=== PATIENT | female | born 1945 | race Caucasian/White ===

== ENCOUNTER 2020-08-06 08:47 | Outpatient (REF) | payer MEDICARE, SELFPAY ==
[2020-08-06 10:02] LABS: MANUAL DIFF FLAG NO
[2020-08-06 10:11] LABS: Basophils Absolute Auto 0.1 X10*3/uL (0.0-0.2); Basophils Percent Auto 0.5 % (0-2); Eosinophils Absolute Auto 0.6 X10*3/uL (0.0-0.4); Eosinophils Percent Auto 6.6 % (0-4); Hematocrit 35.9 % (37-47); Hemoglobin 11.4 g/dl (12.0-16.0); Imm Gran Abs Auto 0.03 X10*3/uL (0.00-0.03); Imm Gran Pct Auto 0.3 % (0.0-0.4); Lymphocytes Percent Auto 20.4 % (20-40); Mean Corpuscular HGB Conc 31.8 g/dl (31.0-35.0); Mean Corpuscular Hemoglobin 27.5 pg (27.0-33.0); Mean Corpuscular Volume 86.7 fL (80-98); Mean Platelet Volume 12.4 fL (9.4-12.3); Monocytes Absolute Auto 0.6 X10*3/uL (0.1-1.2); Monocytes Percent Auto 6.1 % (2-11); Neutrophils Absolute Auto 6.4 X10*3/uL (2.0-8.3); Neutrophils Percent Auto 66.1 % (45-73); Platelet Count 249 X10*3/uL (160-400); Red Blood Count 4.14 X10*6/uL (4.20-5.50); Red Cell Distribution Width 13.4 % (11.0-16.0); White Blood Count 9.7 X10*3/uL (4.8-10.8)
[2020-08-06 10:19] LABS: Glucose Urine UA 250 MG/DL (NEG); Leukocyte Esterase Urine NEG (NEG); Nitrite Urine NEG (NEG); Urine Blood TRACE (NEG); Urine Ketones NEG (NEG); Urine Protein 2+ MG/DL (NEG-TRACE)
[2020-08-06 10:22] LABS: Renal w Reflex-LAB USE ONLY Order Verified
[2020-08-06 10:23] LABS: Appearance Urine CLEAR; Color Urine YELLOW
[2020-08-06 10:36] LABS: Bacteria Urine TRACE /LPF; Hyaline Casts Urine 0-2 /LPF; Mucus Urine TRACE /LPF; RBC Urine 0-2 /HPF (0); Squamous Epithelial Cell Urine 1+ /LPF
[2020-08-06 10:53] LABS: Albumin Level 4.2 g/dL (3.5-5.0); Anion Gap 16 (12-20); Blood Urea Nitrogen 65 mg/dL (9-16); Calcium 9.3 mg/dL (8.4-10.2); Carbon Dioxide 27 mmol/L (22-29); Chloride 104 mmol/L (96-108); Estimated Glomerular Filt Rate 16; Magnesium 2.3 mg/dL (1.6-2.6); Phosphorus 3.7 mg/dL (2.7-4.5); Potassium 4.8 mmol/l (3.3-5.1); Sodium 142 mmol/L (135-145)
[2020-08-06 10:57] LABS: Creatinine Urine 94.71 mg/dL
[2020-08-06 11:02] LABS: Total Protein Urine Random 259 mg/dL (<12)
[2020-08-06 11:33] LABS: Renal w Reflex Lab Use Only Order verified
[2020-08-06 11:38] LABS: Creatinine Urine 93.04 mg/dL; Protein/Creatinine Ratio, Ur 2.81 (<0.2); Total Protein Urine Random 261 mg/dL (<12)
[2020-08-07 17:21] LABS: Calcium (PTHI) 9.4 mg/dL (8.6-10.4); PTHI 95 pg/mL (14-64)
== END 2020-08-06 08:48 | disposition home or self-care (01) ==
LOC: HO.10HDL 08:47
PROVIDERS: Visit Provider Internal Medicine Nephrology
DX: E11.29 Type 2 diabetes mellitus with other diabetic kidney complication (principal); I12.9 Hypertensive chronic kidney disease with stage 1 through stage 4 chronic kidney disease, or unspecified chronic kidney disease; N18.30 Chronic kidney disease, stage 3 unspecified; R80.9 Proteinuria, unspecified
CPT/HCPCS: 36415; 80051; 81001; 82040; 82043; 82306; 82310; 82565; 83735; 83970; 84100; 84156; 84520; 85025

== ENCOUNTER 2020-11-13 09:41 | Outpatient (REF) | payer MEDICARE, SELFPAY ==
--- NOTE | ~2020-11-13 | XR_ITS ---
EXAMINATION: XR TIBIA AND FIBULA, RIGHT CLINICAL INFORMATION: Calcaneal abscess COMPARISON: None TECHNIQUE: AP and lateral views of the right tibia and fibula were obtained. FINDINGS: The bones and soft tissues are normal. No fracture. No osseous lesions. There are vascular calcification. XR/XR tibia fibula RT 2V IMPRESSION: Heavy vascular calcification, tibia and fibula otherwise are intact.
== END 2020-11-13 09:42 | disposition home or self-care (01) ==
LOC: HO.HMGCLDS 09:41
PROVIDERS: PCP Pediatrics; Visit Provider General Practice
DX: L02.415 Cutaneous abscess of right lower limb (principal)
CPT/HCPCS: 73590

== ENCOUNTER 2020-11-19 09:54 | Outpatient (REF) | payer MEDICARE, SELFPAY ==
[2020-11-19 13:43] LABS: MANUAL DIFF FLAG NO
[2020-11-19 13:48] LABS: Basophils Absolute Auto 0.1 X10*3/uL (0.0-0.2); Basophils Percent Auto 0.6 % (0-2); Eosinophils Absolute Auto 0.6 X10*3/uL (0.0-0.4); Eosinophils Percent Auto 6.5 % (0-4); Hematocrit 34.4 % (37-47); Hemoglobin 10.8 g/dl (12.0-16.0); Imm Gran Abs Auto 0.04 X10*3/uL (0.00-0.03); Imm Gran Pct Auto 0.4 % (0.0-0.4); Lymphocytes Absolute Auto 2.3 X10*3/uL (1.2-4.9); Lymphocytes Percent Auto 23.4 % (20-40); Mean Corpuscular HGB Conc 31.4 g/dl (31.0-35.0); Mean Corpuscular Hemoglobin 27.6 pg (27.0-33.0); Monocytes Absolute Auto 0.6 X10*3/uL (0.1-1.2); Monocytes Percent Auto 6.1 % (2-11); Neutrophils Absolute Auto 6.2 X10*3/uL (2.0-8.3); Platelet Count 259 X10*3/uL (160-400); Red Blood Count 3.91 X10*6/uL (4.20-5.50); Red Cell Distribution Width 13.7 % (11.0-16.0); White Blood Count 9.8 X10*3/uL (4.8-10.8)
[2020-11-19 14:08] LABS: Glucose Urine UA NEG (NEG); Leukocyte Esterase Urine NEG (NEG); Nitrite Urine NEG (NEG); Specific Gravity - Urine 1.025 (1.005-1.025); Urine Blood TRACE (NEG); Urine Ketones NEG (NEG); Urine Protein 2+ MG/DL (NEG-TRACE)
[2020-11-19 14:10] LABS: Color Urine YELLOW
[2020-11-19 14:11] LABS: Appearance Urine CLEAR
[2020-11-19 14:12] LABS: Renal w Reflex-LAB USE ONLY Order Verified
[2020-11-19 14:18] LABS: Estimated Average Glucose 177 mg/dL; Hemoglobin A1c % 7.8 %
[2020-11-19 14:24] LABS: Bacteria Urine 1+ /LPF; Squamous Epithelial Cell Urine 4+ /LPF
[2020-11-19 14:27] LABS: Alanine Aminotransferase 15 U/L (0-31); Albumin Level 4.2 g/dL (3.5-5.0); Alkaline Phosphatase 88 U/L (39-117); Anion Gap 18 (12-20); Aspartate Amino Transferase 15 U/L (5-31); Bilirubin Total 0.3 mg/dL (0.0-1.0); Calcium 9.5 mg/dL (8.4-10.2); Carbon Dioxide 21 mmol/L (22-29); Chloride 108 mmol/L (96-108); Glucose Fasting 104 mg/dL (60-99); Potassium 4.6 mmol/L (3.3-5.1); Sodium 142 mmol/L (135-145); Total Protein 7.2 g/dL (6.5-8.0); Uric Acid 8.4 mg/dL (2.4-5.7)
[2020-11-19 14:28] LABS: Magnesium 2.2 mg/dL (1.6-2.6); Phosphorus 5.5 mg/dL (2.7-4.5)
[2020-11-19 14:36] LABS: Renal w Reflex Lab Use Only Order verified; Vitamin D 25-OH Total 37.7 ng/mL (>30)
[2020-11-19 14:46] LABS: TSH reflex Free T4 1.01 uIU/mL (0.32-4.0)
[2020-11-19 14:51] LABS: Erythrocyte Sedimentation Rate 50 MM/HR (0-20)
[2020-11-19 14:58] LABS: Blood Urea Nitrogen 91 mg/dL (9-16); Estimated Glomerular Filt Rate 12
[2020-11-19 15:06] LABS: Creatinine Urine 67.55 mg/dL; Microalbum/Creatinine Ratio Ur 2894.1 ug/mg cr; Protein/Creatinine Ratio, Ur 4.26 (<0.2); Total Protein Urine Random 288 mg/dL (<12)
== END 2020-11-19 09:55 | disposition home or self-care (01) ==
LOC: HO.10HDL 09:54
PROVIDERS: Absent Provider Internal Medicine Nephrology; Visit Provider Pediatrics
DX: E11.29 Type 2 diabetes mellitus with other diabetic kidney complication (principal); E11.22 Type 2 diabetes mellitus with diabetic chronic kidney disease; I13.10 Hypertensive heart and chronic kidney disease without heart failure, with stage 1 through stage 4 chronic kidney disease, or unspecified chronic kidney disease; N18.30 Chronic kidney disease, stage 3 unspecified; R80.9 Proteinuria, unspecified; E11.65 Type 2 diabetes mellitus with hyperglycemia; E78.2 Mixed hyperlipidemia; L02.415 Cutaneous abscess of right lower limb; M1A.3720 Chronic gout due to renal impairment, left ankle and foot, without tophus (tophi)
CPT/HCPCS: 36415; 80053; 81001; 82043; 82306; 82550; 83036; 83735; 84100; 84156; 84443; 84550; 85025; 85652

== ENCOUNTER 2021-02-18 10:25 | Outpatient (REF) | payer MEDICARE, SELFPAY ==
[2021-02-18 11:38] LABS: MANUAL DIFF FLAG NO
[2021-02-18 11:54] LABS: Basophils Absolute Auto 0.1 X10*3/uL (0.0-0.2); Basophils Percent Auto 0.3 % (0-2); Eosinophils Absolute Auto 0.3 X10*3/uL (0.0-0.4); Eosinophils Percent Auto 1.7 % (0-4); Hematocrit 38.5 % (37-47); Hemoglobin 12.4 g/dl (12.0-16.0); Imm Gran Abs Auto 0.07 X10*3/uL (0.00-0.03); Imm Gran Pct Auto 0.5 % (0.0-0.4); Lymphocytes Absolute Auto 1.6 X10*3/uL (1.2-4.9); Lymphocytes Percent Auto 10.2 % (20-40); Mean Corpuscular HGB Conc 32.2 g/dl (31.0-35.0); Mean Corpuscular Hemoglobin 27.8 pg (27.0-33.0); Mean Corpuscular Volume 86.3 fL (80-98); Mean Platelet Volume 13.6 fL (9.4-12.3); Monocytes Absolute Auto 0.9 X10*3/uL (0.1-1.2); Monocytes Percent Auto 6.1 % (2-11); Neutrophils Absolute Auto 12.3 X10*3/uL (2.0-8.3); Neutrophils Percent Auto 81.2 % (45-73); Platelet Count 218 X10*3/uL (160-400); Red Blood Count 4.46 X10*6/uL (4.20-5.50); Red Cell Distribution Width 12.9 % (11.0-16.0); White Blood Count 15.2 X10*3/uL (4.8-10.8)
[2021-02-18 12:00] LABS: Estimated Average Glucose 171 mg/dL; Hemoglobin A1c % 7.6 %
[2021-02-18 12:08] LABS: Alanine Aminotransferase 58 U/L (0-31); Albumin Level 3.9 g/dL (3.5-5.0); Alkaline Phosphatase 100 U/L (39-117); Anion Gap 15 (12-20); Aspartate Amino Transferase 14 U/L (5-31); Bilirubin Total 0.5 mg/dL (0.0-1.0); Blood Urea Nitrogen 70 mg/dL (9-16); Calcium 9.6 mg/dL (8.4-10.2); Carbon Dioxide 29 mmol/L (22-29); Chloride 99 mmol/L (96-108); Cholesterol 160 mg/dL; Estimated Glomerular Filt Rate 11; Glucose Random 237 mg/dL (60-115); HDL Cholesterol 37 mg/dL; Iron 44 mcg/dL (30-160); LDL Cholesterol Calculated 101 mg/dl; Magnesium 2.1 mg/dL (1.6-2.6); Percent Iron Saturation 21 % (15-50); Potassium 4.2 mmol/L (3.3-5.1); Sodium 139 mmol/L (135-145); Total Iron Binding Capacity 207 mcg/dL (228-428); Total Protein 6.8 g/dL (6.5-8.0); Triglycerides 114 mg/dL; Unsaturated Iron Binding 163 ug/dL
[2021-02-18 12:22] LABS: Ferritin 1187 ng/mL (10-250)
== END 2021-02-18 10:26 | disposition home or self-care (01) ==
LOC: HO.LAB 10:25
PROVIDERS: PCP Pediatrics; Referring Provider Internal Medicine Nephrology; Visit Provider General Practice
DX: E11.65 Type 2 diabetes mellitus with hyperglycemia (principal); M62.81 Muscle weakness (generalized)
CPT/HCPCS: 36415; 80053; 80061; 82306; 82728; 83036; 83540; 83735; 85025; 87086; 87088; 87186

== ENCOUNTER 2021-04-06 10:12 | Outpatient (REF) | payer MEDICARE, SELFPAY ==
[2021-04-06 10:59] LABS: Hematocrit 34.4 % (37-47); Hemoglobin 11.2 g/dl (12.0-16.0); Mean Corpuscular HGB Conc 32.6 g/dl (31.0-35.0); Mean Corpuscular Hemoglobin 28.1 pg (27.0-33.0); Mean Corpuscular Volume 86.4 fL (80-98); Mean Platelet Volume 12.5 fL (9.4-12.3); Platelet Count 268 X10*3/uL (160-400); Red Blood Count 3.98 X10*6/uL (4.20-5.50); Red Cell Distribution Width 12.8 % (11.0-16.0); White Blood Count 10.5 X10*3/uL (4.8-10.8)
[2021-04-06 11:34] LABS: HBS Num1 5.08 mIU/mL (0-7.99); HBsAGNum1 0.23 S/CO (0.00-0.99); Hepatitis B Surface Antigen Negative (Negative); ~HepC Num1 0.34 S/CO (0.00-0.79); ~Hepatitis B Surface Antibody NONREACTIVE (Nonreactive); ~Hepatitis C Antibody Nonreactive (Nonreactive)
[2021-04-06 11:38] LABS: Albumin Level 3.9 g/dL (3.5-5.0); Anion Gap 15 (12-20); Blood Urea Nitrogen 58 mg/dL (9-16); Calcium 9.6 mg/dL (8.4-10.2); Carbon Dioxide 26 mmol/L (22-29); Chloride 105 mmol/L (96-108); Estimated Glomerular Filt Rate 14; Magnesium 2.2 mg/dL (1.6-2.6); Phosphorus 3.9 mg/dL (2.7-4.5); Potassium 4.8 mmol/L (3.3-5.1); Sodium 141 mmol/L (135-145)
[2021-04-06 11:43] LABS: Vitamin D 25-OH Total 39.2 ng/mL (>30)
[2021-04-06 14:07] LABS: Appearance Urine CLEAR; Color Urine YELLOW; Glucose Urine UA 100 MG/DL (NEG); Leukocyte Esterase Urine TRACE (NEG); Nitrite Urine NEG (NEG); Urine Blood TRACE (NEG); Urine Ketones NEG (NEG); Urine Protein 3+ MG/DL (NEG-TRACE)
[2021-04-06 14:25] LABS: Bacteria Urine 3+ /LPF; Squamous Epithelial Cell Urine 3+ /LPF
[2021-04-06 14:37] LABS: Creatinine Urine 72.24 mg/dL
[2021-04-06 14:51] LABS: Total Protein Urine Random 315 mg/dL (<12)
[2021-04-06 15:08] LABS: Microalbum/Creatinine Ratio Ur 2855.7 ug/mg cr
[2021-04-07 16:52] LABS: Calcium (PTHI) 9.3 mg/dL (8.6-10.4); PTHI 127 pg/mL (14-64)
== END 2021-04-06 10:13 | disposition home or self-care (01) ==
LOC: HO.10HDL 10:12
PROVIDERS: Visit Provider Internal Medicine Nephrology
DX: I11.0 Hypertensive heart disease with heart failure (principal); N18.5 Chronic kidney disease, stage 5; I50.9 Heart failure, unspecified; E11.22 Type 2 diabetes mellitus with diabetic chronic kidney disease; E11.21 Type 2 diabetes mellitus with diabetic nephropathy; R80.1 Persistent proteinuria, unspecified
CPT/HCPCS: 36415; 80051; 81001; 81003; 82040; 82043; 82306; 82310; 82565; 83735; 83970; 84100; 84156; 84520; 85027; 86705; 86706; 86803; 87086; 87340

== ENCOUNTER 2021-06-22 11:45 | Outpatient (REF) | payer MEDICARE, SELFPAY ==
[2021-06-22 14:11] LABS: Appearance Urine HAZY; Color Urine STRAW; Glucose Urine UA 100 MG/DL (NEG); Leukocyte Esterase Urine NEG (NEG); Nitrite Urine NEG (NEG); Urine Blood TRACE (NEG); Urine Ketones NEG (NEG); Urine Protein 3+ MG/DL (NEG-TRACE)
[2021-06-22 14:15] LABS: Hematocrit 34.5 % (37.0-47.0); Hemoglobin 10.9 g/dl (12.0-16.0); Mean Corpuscular HGB Conc 31.6 g/dl (31.0-35.0); Mean Corpuscular Hemoglobin 27.5 pg (27.0-33.0); Mean Corpuscular Volume 86.9 fL (80.0-98.0); Mean Platelet Volume 13.5 fL (9.4-12.3); Platelet Count 211 X10*3/uL (160-400); Red Blood Count 3.97 X10*6/uL (4.20-5.50); Red Cell Distribution Width 13.7 % (11.0-16.0); White Blood Count 8.2 X10*3/uL (4.8-10.8)
[2021-06-22 14:18] LABS: Albumin Level 3.7 g/dL (3.5-5.0); Anion Gap 15 (12-20); Blood Urea Nitrogen 72 mg/dL (9-16); Calcium 9.2 mg/dL (8.4-10.2); Carbon Dioxide 22 mmol/L (22-29); Chloride 110 mmol/L (96-108); Estimated Glomerular Filt Rate 12; Magnesium 2.1 mg/dL (1.6-2.6); Phosphorus 4.2 mg/dL (2.7-4.5); Potassium 4.7 mmol/L (3.3-5.1); Sodium 142 mmol/L (135-145)
[2021-06-22 14:39] LABS: Vitamin D 25-OH Total 26.8 ng/mL (>30)
[2021-06-22 15:21] LABS: Creatinine Urine 61.22 mg/dL; Total Protein Urine Random 459 mg/dL (<12)
[2021-06-22 16:02] LABS: Bacteria Urine 1+ /LPF; Granular Casts Urine 0-2 /LPF; Hyaline Casts Urine 0-2 /LPF; Squamous Epithelial Cell Urine 2+ /LPF
[2021-06-23 14:51] LABS: Calcium (PTHI) 9.3 mg/dL (8.6-10.4); PTHI 165 pg/mL (14-64)
== END 2021-06-22 11:46 | disposition home or self-care (01) ==
LOC: HO.10HDL 11:45
PROVIDERS: Visit Provider Internal Medicine Nephrology
DX: N18.5 Chronic kidney disease, stage 5 (principal); E11.21 Type 2 diabetes mellitus with diabetic nephropathy; N25.0 Renal osteodystrophy
CPT/HCPCS: 36415; 80051; 81001; 82040; 82043; 82306; 82310; 82565; 83735; 83970; 84100; 84156; 84520; 85027; 87086